=== PATIENT | female | born 1990 | race Caucasian/White ===

== ENCOUNTER 2017-02-17 22:01 | Inpatient (IN) | payer BC ==
[~2017-02-17] VITALS: Ht 160 cm; Wt 69.1 kg
[2017-02-17 22:15] VITALS: BP 139/71; PULSE 75; TEMP 97.7
[2017-02-17] MEDS ORDERED: PRENATAL1 TA7 PO (22:21)
[2017-02-17] MEDS ORDERED: CEPHALEXIN500 M1 PO (22:23)
[2017-02-17 22:24] VITALS: BP 139/71; PULSE 75; TEMP 97.7
[2017-02-17 22:50] VITALS: BP 114/68; PULSE 94
[2017-02-17 23:14] LABS: BASO % 0.2 % (0.0-2.0); EOS # 0.1 (0.0-0.7); EOS % 0.4 % (0-4.0); GRAN # 12.7 (1.4-6.5); GRAN % 79.6 % (42.2-75.2); HEMATOCRIT 42.4 % (37.0-47.0); HEMOGLOBIN 14.9 g/dl (12.5-16.0); LYMPH # 1.9 (1.2-3.4); LYMPH % 11.7 % (20.0-51.0); MEAN CELL VOLUME 94 fl (80.0-100.0); MEAN CORPUSCULAR HEMOGLOBIN 33 pg (27.0-31.0); MEAN CORPUSCULAR HGB CONC 35 g/dl (33.0-37.0); MONO # 1.2 (0.1-0.6); MONO % 7.5 % (1.7-9.3); PLATELET COUNT 220 K/mm3 (130-400); REDCELL DISTRIBUTION WIDTH-CV 11.7 % (11.5-14.5); WHITE BLOOD COUNT 15.9 K/mm3 (4.8-10.8)
[2017-02-17 23:15] VITALS: BP 142/94; PULSE 94
[2017-02-17 23:30] VITALS: BP 117/64; PULSE 67
[2017-02-17 23:45] VITALS: BP 113/63; PULSE 73
[2017-02-18] VITALS (28 sets, daily range): BP systolic 95–150; BP diastolic 51–96; PULSE 60–131; TEMP 97.4–98.4
[2017-02-19] MEDS ORDERED: PERCOCET 325 MG1 TA2 PO (08:40)
[2017-02-19] MEDS ORDERED: IBU800 M1 PO (08:40)
[2017-02-19 09:53] VITALS: BP 115/66; PULSE 69; TEMP 97.8
[2017-02-19 16:00] VITALS: BP 100/48; PULSE 74
[2017-02-19 21:00] VITALS: BP 112/60; PULSE 62; TEMP 97.2
[2017-02-20 07:05] VITALS: BP 111/61; PULSE 70; TEMP 97.9
[2017-02-20 16:05] VITALS: BP 112/67; PULSE 61; TEMP 98.1
== END 2017-02-20 19:30 | disposition home or self-care (01) | DRG 775 ==
LOC: LDRO 22:01 → OB 22:36 → LDR 22:36 → OB 02-18 09:00
PROVIDERS: Student in an Organized Health Care Education/Training Program
PROC: 10E0XZZ Delivery of Products of Conception, External Approach (ICD-10-PCS; principal; 2017-02-18)
PROC: 0KQM0ZZ Repair Perineum Muscle, Open Approach (ICD-10-PCS; 2017-02-18)
DX: O36.0130 Maternal care for anti-D [Rh] antibodies, third trimester, not applicable or unspecified (principal); O35.8XX0 Maternal care for other (suspected) fetal abnormality and damage, not applicable or unspecified; O70.1 Second degree perineal laceration during delivery; Z3A.39 39 weeks gestation of pregnancy; Z37.0 Single live birth
CPT/HCPCS: J2590; J2791; J2795; J7120

== ENCOUNTER → 2017-02-23 | Outpatient (CLI) | payer BC ==
[~2017-02-23] MED LIST: CEPHALEXIN500 M1 PO; IBU800 M1 PO; PERCOCET 325 MG1 TA2 PO; PRENATAL1 TA7 PO
== END ==
LOC: LAC 10:42
DX: Z39.1 Encounter for care and examination of lactating mother (principal); Z71.89 Other specified counseling

== ENCOUNTER → 2017-02-26 | Outpatient (CLI) | payer BC | LOC: LAC 13:28 | DX: Z39.1 Encounter for care and examination of lactating mother (principal); Z71.89 Other specified counseling ==

== ENCOUNTER → 2017-12-28 | Outpatient (CLI) | payer BC | LOC: LAC 11:32 | DX: Z39.1 Encounter for care and examination of lactating mother (principal); Z71.89 Other specified counseling ==

== ENCOUNTER 2019-06-08 12:17 | Inpatient (IN) | payer BC ==
[2019-06-08] VITALS (21 sets, daily range): BP systolic 90–139; BP diastolic 48–90; PULSE 62–93; TEMP 98–99.6
[~2019-06-08] VITALS: Ht 160 cm; Wt 66.8 kg
[2019-06-08 13:19] LABS: BASO % 0.2 % (0.0-2.0); EOS # 0.1 (0.0-0.7); EOS % 0.3 % (0-4.0); GRAN # 12.6 (1.4-6.5); GRAN % 82.4 % (42.2-75.2); HEMOGLOBIN 14.2 g/dl (12.5-16.0); LYMPH # 1.5 (1.2-3.4); LYMPH % 9.9 % (20.0-51.0); MEAN CELL VOLUME 97 fl (80.0-100.0); MEAN CORPUSCULAR HEMOGLOBIN 34 pg (27.0-31.0); MEAN CORPUSCULAR HGB CONC 35 g/dl (33.0-37.0); MEAN PLATELET VOLUME 10.2 fl (7.4-10.4); MONO % 6.2 % (1.7-9.3); PLATELET COUNT 197 K/mm3 (130-400); RED BLOOD COUNT 4.23 M/mm3 (4.10-5.30); REDCELL DISTRIBUTION WIDTH-CV 12.4 % (11.5-14.5)
--- NOTE | 2019-06-08 15:10 | NUR ---
1225: Patient onto unit via wheelchair with report of SROM and contractions. Patient changes into gown. Plan of care discussed. EFMs on, VS taken. SVE 5/100/-2, large amount of clear fluid noted with exam. Patient reports good movement. Reports irregular contractions since 0300 and SROM at 1152 while at work. 1230: notified for admission orders. 1255: IV started by Cr ISIDRO. LR bolusing for epidural placement. 1305: Gino SNIDER at bedside for epidural placement. Patient sitting up on edge of bed. 1318: Test Dose given by Gino SNIDER. No adverse reactions noted. 1322: Patient repositioned to left tilt. SVE 7/100/0. 1339: Patient reports increased rectal pressure. SVE 8/100/0. 1340: notified of SVE and rectal pressure. Requested on unit for delivery. 1405: at bedside. SVE Complete per provider. 1409: Initial push. 1419: Red Shahid catheter used to drain bladder, 300ml clear yellow urine noted. 1430: Pitocin started per . 1453: Spontaneous vaginal delivery assisted by over 2nd degree vaginal laceration. Pitocin off. to abdomen, care of assumed by Jose ISIDRO at this time. 1458: Spontaneous vaginal delivery of placenta assisted by . Fundus firm at D3, scant lochia noted. Pitocin infusing at 333ml/hr. 2nd degree perineal laceration noted. Repaired using 2-[address]-1. Red Shahid cathter used to drain bladder, 50ml clear yellow urine noted. 1510: Recovery started. Fundus firm at D2, scant lochia noted.
[2019-06-09 08:00] VITALS: BP 106/72; PULSE 69; TEMP 97.7
--- NOTE | 2019-06-09 09:43 | NUR ---
Initial visit; Mom indisposed, Dad thanked Hospital Unit Coordinator for offering congratulations and God's blessings for the of their son. Hospital Unit Coordinator thanked them for choosing [facility].
[2019-06-09] MEDS ORDERED: IBU800 M1 PO (10:11)
[2019-06-09] MEDS ORDERED: PERCOCET 325 MG1 TA2 PO (10:11)
== END 2019-06-09 17:35 | disposition home or self-care (01) | DRG 807 ==
LOC: LDRO 12:17 → LDR 12:21 → OB 17:30
PROVIDERS: Student in an Organized Health Care Education/Training Program
PROC: 10E0XZZ Delivery of Products of Conception, External Approach (ICD-10-PCS; principal; 2019-06-08)
PROC: 0KQM0ZZ Repair Perineum Muscle, Open Approach (ICD-10-PCS; 2019-06-08)
DX: O48.0 Post-term pregnancy (principal); Z37.0 Single live birth; O70.1 Second degree perineal laceration during delivery; Z3A.40 40 weeks gestation of pregnancy; O76 Abnormality in fetal heart rate and rhythm complicating labor and delivery
CPT/HCPCS: J2590; J2791; J7120

== ENCOUNTER → 2019-06-13 | Outpatient (CLI) | payer BC ==
--- NOTE | 2019-06-13 13:00 | NUR ---
Starr Blackwood into clinic with 6 day old Tom for breast feeding evaluation and concerns regarding sore nipples. Tom was born on [birth year] with a weight of 7# 10 oz. At his follow up appointment with Dr. Shah on 06/12/19, Starr states Alejandro weighed 7# 7 oz. Today's prefeed weight was noted as 7 # 8.6 ( 3414 gm). Starr nursed Tom bilaterally while in clinic with a total gain of 66 gms (2.4 oz). Good latch and positioning noted; however, LC did not would birng his bottom jaw up creating a shallow latch and his mouth slid down shaft of nipple when he became sleeping. LC disussed ways to help keep a deep latch by putting slight traction on chin and keeping 's head supported while at breast. ADRIANO suggested usign Resendez's Nipple Cream and breast shells to help sores on nipples heal and decrease risk of reinjuring the tissue. Starr notes she first baby had an undiagnosed tongue tie until age 11 months when it was repaired. Tom has an upcoming evaluation to rule out tongue, lip ties that may be a cause of the nipple pain. POC: Continue to feed ad pietro. Use Resendez's Nipple Cream and/or shells until sores on nipples are healed. Attend evaluation appointment to look a possibility of tongue tie. Follow up in clinic as needed for weight checks or with futher concerns related to breast feeding. Questions encouraged and answered. Understanding verbalized.
== END ==
LOC: LAC 12:10
DX: Z39.1 Encounter for care and examination of lactating mother (principal); Z71.89 Other specified counseling

== ENCOUNTER → 2019-06-20 | Outpatient (CLI) | payer BC ==
--- NOTE | 2019-06-20 12:40 | NUR ---
Pt, Starr Blackwood, presents to walk in clinic with 13 day old baby boy, Tom Blackwood. They were seen last week as well to evaluate Tom for latching and tongue tie. Tom was born on [birth year] and weighed 7# 10oz (3459 gms). Last week his weight was 7#8.4oz (3414 gms). Tom was evaluated and treated for an upper lip tie and tongue tie by Dr. Thomas at [facility] on 06/14/19. Pt states that latch and nipple soreness is generally improving but still has some painful feeding. Healing is noted in the locations of release and pt states she is performing the exercises advised by Dr. Thomas. Today Tom weighs 7#15.4oz (3612 gms), for a 6.8oz gain in the last week. Pt reports Tom nurses bilaterally then about 45 minutes later is acting hungry again so he returns for feeding on just one breast. She still has some soreness but it is improving with Mal's and better latching. Pt works with Tom, keeping his jaw open with latching. She states this latch is comfortable, but does need to continue to support the breast otherwise it becomes painful. After nursing Tom has a weight gain of 4oz (114 gms). POC: Pt advised to monitor Tom's behavior at the 45 min range and evaluate if he needs to burp vs. really wanting to nurse again, as it appears he has great transfer. Also discussed letting Tom wake himself for noc feedings as she struggles to get him to nurse bilaterally at [facility]. Review of tongue exercises provided. Breastfeed ad pietro, Resendez's nipple cream ad pietro. Continue tongue exercises. F/U: Clinic as needed, Dr. Shah as scheduled.
== END ==
LOC: LAC 12:05
DX: Z39.1 Encounter for care and examination of lactating mother (principal); Z71.89 Other specified counseling

== ENCOUNTER → 2019-06-27 | Outpatient (CLI) | payer BC ==
--- NOTE | 2019-06-27 10:59 | NUR ---
Starr Jaison into walk in clinic with 3 week old Tom for evaluation and weight check. Starr and Tom have been into the clinic the previous two weesk, please see past notes. Starr reports latching been more comfortable since Tom's tongue tie repair. Last week while in clinic, Tom's prefeed weight was noted as 7#15.4 oz and took 4 oz fro the breast. Today's prefeed weight was noted as 8# 10.8 oz (3934 gms), a gain of 11 oz in the previous week. Starr states Tom has been cluster feeding through the night and is not content after feedings, he also spits up regularly after feedings. Starr states she feels like her milk supply is abduntant and has been feeding off only one breast per feeding. She also states when she offers the second breast, tom gets fussy after feeding and spits up. While in clinic, Tom nursed for 15 min from the left breast with a gain of 2.9 oz (81 gms). Tom was content and had only a small amount of spit up. POC: Continue to feed ad pietro while block feeding one breast per feeding to ensure Tom is getting hind milk to stay satisfied longer or prepump a small amount before feeding to see if this helps Tom handle Starr's quick flow and let down. Burp Tom frequently during feeds to decrease r/o stomach ache. Anticipate return next week for weight check. Questions encouraged and answered. Understanding verbalized.
== END ==
LOC: LAC 10:27
DX: Z39.1 Encounter for care and examination of lactating mother (principal); Z71.89 Other specified counseling

== ENCOUNTER → 2019-07-04 | Outpatient (CLI) | payer BC ==
--- NOTE | 2019-07-04 13:02 | NUR ---
Pt, Starr Cardenasbard, presents to walk-in clinic with 3+ week old baby boy, Tom Blackwood, for a evaluation and weight check. Tom was born on [birth year] and weighed 7#10oz (3459 gms). Last week he weighed 8#10.8oz (3935 gms). Tom is S/P 3 weeks frenectomy. She states is no longer painful. Last week it was suggested she try one side feedings to help with the forceful let-down and over-abundant milk supply. Pt reports she did this for 3-4 days and felt the milk volume did decrease but was then worried about not having enough milk so she resumed bilateraly feedings. Today Tom has a weight gain of 4.4oz (124 gms) after nursing on the right breast alone. He has a little spit up but WNL. POC: Discussed returning to one-side feeding for a week and re-evluate weight gain and milk volume . Reassured baby would get enough hind milk and with his overall weight gain he would continue to gain as expected. Also reviewed it may take 3 months before milk supply is truely regulated. F/U: Tom has a one [address] appointment [address] Dr. Shah next week. Pt to follow up if any concerns are identified at that time, and at clinic as desired. Questions invited and answered.
== END ==
LOC: LAC 11:50
DX: Z39.1 Encounter for care and examination of lactating mother (principal); Z71.89 Other specified counseling

== ENCOUNTER → 2019-07-18 | Outpatient (CLI) | payer BC ==
--- NOTE | 2019-07-18 11:27 | NUR ---
Pt, Starr Blackwood, presents to walk-in clinic with 6 week old baby boy Tom Blackwood, for a weight check and evalation of milk transfer. Tom was born on [birth year] and weighed 7#10oz. He was seen in clinic on 07/04/19 and weighed 9#4.2oz (4201 gms). Starr has been block feeding because of abundant milk supply and is now starting to pump to collect milk for returning to work. This morning she collected 7oz after Tom fed from the breast. Today Tom weighs 10#0.8oz (4558 gms), a gain of about 6 oz from his appointment with Dr. Shah last week. After Tom has a weight gain of 3.8oz (108 gms). POC: consider bilateral feeding after at the feeding following the pumping. Otherwise continue one-side unless Tom indicates he wants more. F/U: Walk in clinic as desired, as scheduled with Dr. Shah. Questions invited and answered.
== END ==
LOC: LAC 10:06
DX: Z39.1 Encounter for care and examination of lactating mother (principal); Z71.89 Other specified counseling